=== PATIENT | male | born 1995 | race Caucasian/White ===

== ENCOUNTER 2017-08-29 06:47 | Emergency (ER) | payer OTHER ==
[~2017-08-29] VITALS: Ht 182.9 cm; Wt 131.7 kg
[2017-08-29 06:49] VITALS: TEMP 36.6; Ht 182.9 cm; Wt 131.7 kg
[2017-08-29] MEDS ORDERED: SODIUM CHLORIDE 0.9% 1000ML 1,000 ML IV STA (06:57)
[2017-08-29] MEDS ORDERED: ONDANSETRON INJ 2 MG/ML 2 ML VIAL IV STA (06:57)
[2017-08-29] MEDS ORDERED: KETOROLAC TROMETHAMINE 30 MG/ML VIAL IV STA (07:17)
[2017-08-29 07:36] LABS: BASO % 0.1 %; BASO ABS # 0.01 K/uL (0-0.2); COMPLETE YES; EOS % 1.3 %; HEMATOCRIT 41.9 % (42-52); IG% 0.3 %; LYMPH % 33.9 %; LYMPH ABS # 2.52 K/uL (1.2-3.4); MEAN CELL VOLUME 80.9 fL (80-100); MEAN CORPUSCULAR HGB CONC 33.4 g/dl (32-36); MONO % 10.9 %; NEUT % 53.5 %; PLATELET COUNT 264 K/uL (130-400); RED BLOOD COUNT 5.18 M/uL (4.7-6.1); WHITE BLOOD COUNT 7.43 K/uL (4.8-10.8)
[2017-08-29 08:13] LABS: ALKALINE PHOSPHATASE 169 U/L (45-117); ALT/SGPT 65 U/L (12-78); AST/SGOT 30 U/L (15-37); BLOOD UREA NITROGEN 12 mg/dl (7-18); BUN/CREATININE RATIO 17.2 (10-20); CALCIUM 8.9 mg/dl (8.5-10.1); CARBON DIOXIDE 23 mmol/L (21-32); CHLORIDE 107 mmol/L (98-107); CREATININE 0.67 mg/dl (0.60-1.40); GLUCOSE 92 mg/dl (70-99); POTASSIUM 4.2 mmol/L (3.5-5.1); SODIUM 138 mmol/L (136-145)
[2017-08-29 09:11] LABS: URINE APPEARANCE CLEAR (CLEAR); URINE BILIRUBIN NEG (NEG); URINE COLOR DK YELLOW; URINE EPITHELIAL CELL AUTO 0-5 /lpf (0-5); URINE NITRITE NEG (NEG); URINE SPECIFIC GRAVITY 1.029 (1.000-1.030); UROBILINOGEN NEG (NEG); ZZUR CULT IF INDIC CLEAN CATCH NO
[2017-08-29 09:14] LABS: MANUAL MICROSCOPIC REQUIRED? NO; REVIEW REQ? NO
--- NOTE | 2017-08-29 09:42 | EMERGENCY ROOM VISIT NOTE ---
History Report prepared by Marcie: Ramo Gonzales Under the Supervision of: Dr. Dale Pathak D.O. First contact with patient: 06:54 Chief Complaint: ABDOMINAL PAIN Stated Complaint: STOMACH PAIN,THROWING UP BLOOD History of Present Illness The patient is a 22 year old male who presents to the Emergency Room with complaints of bilateral lower quadrant abdominal pain that began 8 hours ago. He rates his pain a 6/10 in severity. He describes his pain as a feeling as if he has to use the bathroom but cannot. Last night, he experienced three episodes of vomiting with trace amounts of blood present in it. His last normal bowel movement was a couple of days ago. He denies any fevers, back pain, or abnormal urinary symptoms. Source of History: patient Onset: 8 hours ago Position: abdomen (bilateral lower) Symptom Intensity: 6/10 Quality: ache Timing: constant Associated Symptoms: + vomiting (with trace blood), No fevers, No back pain , No urinary symptoms Review of Systems See HPI for pertinent positives & negatives. A total of 10 systems reviewed and were otherwise negative. Past Medical & Surgical Medical Problems: (1) No Known Active Medical Problems Family History Patient reports no known family medical history. Social History Smoking Status: Never Smoker Smokeless Tobacco Use: No Drug Use: none Marital Status: single Current/Historical Medications No Active Prescriptions or Reported Meds Allergies Coded Allergies: No Known Allergies (Unverified , 08/29/17) Physical Exam Vital Signs Date Time Temp Pulse Resp B/P (MAP) Pulse Ox O2 Delivery O2 Flow Rate FiO2 08/29/17 08:55 69 18 133/96 99 Room Air 08/29/17 06:49 36.6 76 18 154/105 97 Physical Exam CONSTITUTIONAL/VITAL SIGNS: Reviewed / noted above. GENERAL: Non-toxic in appearance. INTEGUMENTARY: Warm, dry, and [place]. HEAD: Normocephalic. EYES: without scleral icterus or trauma. ENT/OROPHARYNX: clear and moist. LYMPHADENOPATHY/NECK: Is supple without lymphadenopathy or meningismus. RESPIRATORY: Lungs clear and equal. CARDIOVASCULAR: Regular rate and rhythm. GI/ABDOMEN: Soft. Mild diffuse tenderness worse in the left upper quadrant. No organomegaly or pulsatile mass. No rebound or guarding. Normal bowel sounds. EXTREMITIES: Warm and well perfused. BACK: No CVA tenderness. NEUROLOGICAL: Intact without focal deficits. PSYCHIATRIC: normal affect. MUSCULOSKELETAL: Normally developed with good muscle tone. Medical Decision & Procedures Laboratory Results 08/29/17 07:15 Red Blood Count 5.18, Mean Corpuscular Volume 80.9, Mean Corpuscular Hemoglobin 27.0, Mean Corpuscular Hemoglobin Concent 33.4, Mean Platelet Volume 10.0, Neutrophils (%) (Auto) 53.5, Lymphocytes (%) (Auto) 33.9, Monocytes (%) (Auto) 10.9, Eosinophils (%) (Auto) 1.3, Basophils (%) (Auto) 0.1, Neutrophils # (Auto ) 3.97, Lymphocytes # (Auto) 2.52, Monocytes # (Auto) 0.81, Eosinophils # (Auto ) 0.10, Basophils # (Auto) 0.01 08/29/17 07:15 Test 08/29/17 07:15 08/29/17 09:00 White Blood Count 7.43 K/uL (4.8-10.8) Red Blood Count 5.18 M/uL (4.7-6.1) Hemoglobin 14.0 g/dL (14.0-18.0) Hematocrit 41.9 % (42-52) Mean Corpuscular Volume 80.9 fL (80-100) Mean Corpuscular Hemoglobin 27.0 pg (25-34) Mean Corpuscular Hemoglobin Concent 33.4 g/dl (32-36) Platelet Count 264 K/uL (130-400) Mean Platelet Volume 10.0 fL (7.4-10.4) Neutrophils (%) (Auto) 53.5 % Lymphocytes (%) (Auto) 33.9 % Monocytes (%) (Auto) 10.9 % Eosinophils (%) (Auto) 1.3 % Basophils (%) (Auto) 0.1 % Neutrophils # (Auto) 3.97 K/uL (1.4-6.5) Lymphocytes # (Auto) 2.52 K/uL (1.2-3.4) Monocytes # (Auto) 0.81 K/uL (0.11-0.59) Eosinophils # (Auto) 0.10 K/uL (0-0.5) Basophils # (Auto) 0.01 K/uL (0-0.2) RDW Standard Deviation 41.3 fL (36.4-46.3) RDW Coefficient of Variation 13.9 % (11.5-14.5) Immature Granulocyte % (Auto) 0.3 % Immature Granulocyte # (Auto) 0.02 K/uL (0.00-0.02) Anion Gap 8.0 mmol/L (3-11) Est Creatinine Clear Calc Drug Dose 240.7 ml/min Estimated GFR () > 150.0 Estimated GFR (Non- 135.4 BUN/Creatinine Ratio 17.2 (10-20) Calcium Level 8.9 mg/dl (8.5-10.1) Total Bilirubin 0.4 mg/dl (0.2-1) Direct Bilirubin mg/dl (0-0.2) Aspartate Amino Transf (AST/SGOT) 30 U/L (15-37) Alanine Aminotransferase (ALT/SGPT) 65 U/L (12-78) Alkaline Phosphatase 169 U/L (45-117) Total Protein 7.6 gm/dl (6.4-8.2) Albumin 3.7 gm/dl (3.4-5.0) Lipase 80 U/L (73-393) Chemistry Specimen Hemolysis Urine Color DK YELLOW Urine Appearance CLEAR (CLEAR) Urine pH 5.0 (4.5-7.5) Urine Specific [place] 1.029 (1.000-1.030) Urine Protein NEG (NEG) Urine Glucose (UA) NEG (NEG) Urine Ketones NEG (NEG) Urine Occult Blood NEG (NEG) Urine Nitrite NEG (NEG) Urine Bilirubin NEG (NEG) Urine Urobilinogen NEG (NEG) Urine Leukocyte Esterase NEG (NEG) Urine WBC (Auto) 1-5 /hpf (0-5) Urine RBC (Auto) 0-4 /hpf (0-4) Urine Hyaline Casts (Auto) 1-5 /lpf (0-5) Urine Epithelial Cells (Auto) 0-5 /lpf (0-5) Urine Bacteria (Auto) NEG (NEG) Laboratory results as stated above per my review. Medications Administered Medications (Trade) Dose Ordered Sig/Mady Route Start Time Stop Time Status Last Admin Dose Admin Sodium Chloride 1,000 ml @ 999 mls/hr Q1H1M STAT IV 08/29/17 06:57 08/29/17 07:57 DC 08/29/17 07:11 999 MLS/HR Ondansetron HCl (Zofran Inj) 4 mg NOW STAT IV 08/29/17 06:57 08/29/17 06:59 DC 08/29/17 07:11 4 MG Ketorolac Tromethamine (Toradol Inj) 30 mg NOW STAT IV 08/29/17 07:17 08/29/17 07:19 DC 08/29/17 07:38 30 MG ED Course 0654: Previous medical records were reviewed. The patient was evaluated in room B3B. A complete history and physical examination was performed. 0657: Ordered Zofran Inj 4 mg IV, Sodium Chloride 1000 ml @ 999 mls/hr IV 0717: Ordered Toradol Inj 30 mg IV 0943: On reevaluation, the patient is resting. I discussed the results and findings with the patient. He verbalized agreement of the treatment plan. He was discharged home. Medical Decision Differential considered: pancreatitis, hepatitis, or acute cholecystitis, AAA, UTI, pyelonephritis, kidney stones, appendicitis, diverticulitis, shingles, bowel obstruction mesenteric ischemia, intussusception, hernia, and testicular torsion. This is a 22-year-old male who presents to the ED with a chief complaint of abdominal pain as well as nausea and vomiting. The patient states that he has had abdominal cramps seem to be mostly in the size of the abdomen since 11 PM last night. He reported that he has been having abdominal pain or melena for 2 weeks according to the triage note. The patient reports 3 episodes of vomiting last night and may have had a trace of blood in it. Denies any urinary symptoms. Last normal bowel movement was 1-2 days ago. Has no focal tenderness in the right lower quadrant or left lower quadrant. On his exam his blood pressure was slightly elevated. His abdominal exam revealed mild diffuse tenderness but more tender in the left upper quadrant. There is no CVA tenderness. No palpable hernias. His CBC is normal. Complete metabolic panel was unremarkable. Urine did not show infection and lipase is negative. The patient was told the results of tests. Patient is felt to be stable for discharge to outpatient follow-up. He was treated with IV Toradol, IV Zofran and IV fluids. He was advised to return for focal right lower quadrant abdominal pain. Medication Reconcilliation Current Medication List: was personally reviewed by me Blood Pressure Screening Patient's blood pressure: Elevated blood pressure Blood pressure disposition: Elevated BP felt to be situational Impression Primary Impression: Diffuse abdominal pain Additional Impression: Vomiting Scribe Attestation The scribe's documentation has been prepared under my direction and personally reviewed by me in its entirety. I confirm that the note above accurately reflects all work, treatment, procedures, and medical decision making performed by me. Departure Information Dispostion Home / Self-Care Prescriptions No Active Prescriptions or Reported Meds Referrals No Doctor, Assigned (PCP) Forms HOME CARE DOCUMENTATION FORM, IMPORTANT VISIT INFORMATION Patient Instructions Abdominal Pain, My [facility] Additional Instructions Follow-up with your doctor for further care and evaluation in 2-3 days if symptoms persist. Return to ED for focal right lower abdominal pain as this could be indicative of appendicitis. Return to the emergency department for worsening or new symptoms or any concerns. You have been examined and treated today on an emergency basis only. This is not a substitute for, or an effort to provide, complete comprehensive medical care. It is impossible to recognize and treat all injuries or illnesses in a single emergency department visit. It is therefore important that you follow up closely with your doctor. Call as soon as possible for an appointment. Problem Qualifiers
[2017-08-29 10:02] VITALS: BP 133/86; PULSE 69; O2SAT 98
== END 2017-08-29 10:03 | disposition home or self-care (01) ==
LOC: C.EDB 06:48
DX: R10.30 Lower abdominal pain, unspecified (principal); K92.0 Hematemesis